=== PATIENT | male | born 1940 | race Caucasian/White ===

== ENCOUNTER → 2023-08-09 13:04 | Outpatient (REF) | payer MEDICARE, OTHER, SELFPAY | LOC: HWRAD 13:04 | PROVIDERS: ATTENDING PHYSICIAN Family Medicine | DX: I65.23 Occlusion and stenosis of bilateral carotid arteries (principal) | CPT/HCPCS: 93880 ==

== ENCOUNTER → 2023-10-20 11:10 | Outpatient (REF) | payer MEDICARE, OTHER, SELFPAY | LOC: RCS 11:10 | PROVIDERS: ATTENDING PHYSICIAN Internal Medicine Cardiovascular Disease; FAMILY PHYSICIAN Family Medicine | DX: I25.10 Atherosclerotic heart disease of native coronary artery without angina pectoris (principal); R55 Syncope and collapse | CPT/HCPCS: 93225; 93226 ==

== ENCOUNTER → 2023-10-27 08:26 | Outpatient (REF) | payer MEDICARE, OTHER, SELFPAY | LOC: DHCBC/DCA 08:26 | PROVIDERS: ATTENDING PHYSICIAN Internal Medicine Cardiovascular Disease; FAMILY PHYSICIAN Family Medicine | DX: I25.10 Atherosclerotic heart disease of native coronary artery without angina pectoris (principal) | CPT/HCPCS: 78452; 93017; A9500; J2785 ==

== ENCOUNTER 2023-11-03 08:22 | Day surgery (SDC) | payer MEDICARE, OTHER, SELFPAY ==
[2023-11-03] VITALS (13 sets, daily range): BP systolic 107–154; BP diastolic 62–95; BMI 25.8
[2023-11-03] MEDS: LOW STRENGTH ASPIRIN 81 MG PO (09:22)
[2023-11-03] MEDS: NSS 245 ML IV (09:22)
[2023-11-03] MEDS: NSS 1000 IV (11:46)
[2023-11-03] MEDS: TOPROL XL 50 MG PO (14:26)
== END 2023-11-03 14:30 | disposition home or self-care (01) ==
LOC: CATH 08:22
PROVIDERS: ATTENDING PHYSICIAN Internal Medicine Cardiovascular Disease; FAMILY PHYSICIAN Family Medicine
DX: I25.10 Atherosclerotic heart disease of native coronary artery without angina pectoris (principal); I44.7 Left bundle-branch block, unspecified; Q24.5 Malformation of coronary vessels; Z79.82 Long term (current) use of aspirin; Z79.02 Long term (current) use of antithrombotics/antiplatelets; Z79.899 Other long term (current) drug therapy; I10 Essential (primary) hypertension; E78.5 Hyperlipidemia, unspecified; R94.39 Abnormal result of other cardiovascular function study
CPT/HCPCS: 93005; 93458; C1894; Q9967

== ENCOUNTER 2023-11-10 10:00 | Day surgery (SDC) | payer MEDICARE, OTHER, SELFPAY ==
--- NOTE | 2023-11-07 17:10 | ITS.CL.CATH ---
[facility] - Catheterization
Cardiac Catheterization
Procedure Report:
CARDIAC CATHETERIZATION REPORT
Date of Procedure: 11/03/2023
Referring: Manny Heredia MD
Indication: Known CAD with new drop in LVEF and ischemic stress test
�
HEMODYNAMIC DATA
AO: 106/70
LV: 106/18
�
LEFT VENTRICULOGRAPHY: Severe anterolateral hypokinesis with EF 39%
�
CORONARY ANGIOGRAPHY
Dominance: Right
Left Main: Short with 30-40% distal stenosis
LAD: There are two blood supplies to the typical LAD distribution. 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 There is 50% in-stent
LAD stenosis extending into the previously stented diagonal branch. 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 This vessel has 90% ostial and 70-80% proximal
stenoses. Compared with the prior study from 2017, the ostial lesion is new in the proximal lesion has progressed
Circumflex: The circumflex gives rise to a large OM1 and terminates with a large OM 2. There are patent proximal stents in OM1 and in OM 2.
RCA: The RCA is dominant and severely calcified. There is 20% proximal RCA stenosis and 50% stenosis in the mid RCA spanning the takeoff of the huge acute marginal branch which becomes the PDA. The continuation of the RCA has a patent stented
segment and supplies two large posterolateral branches. 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 This was described above.
�
Closure Device: None-the procedure was performed via the right radial artery. The Carlos Enrique's test was normal prior to the procedure.
�
Radiation (mGy): 573
DAP (cm2.Gy): 50.2
Fluoroscopy time: 3.7 minutes
�
CONCLUSIONS
1:�Severe anterolateral hypokinesis with EF 39%. Of note, the anterior wall motion and LVEF were normal on the prior study from 2017
2:�Multivessel CAD as described. 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 This vessel
originates from the proximal RCA.
3. Options including continued medical therapy, attempted high risk PCI, and CABG will be discussed with the patient and family in detail
�
�
Copy to: Manny Heredia MD, Manny Man DO
�
Manny Heredia MD, FAC, [facility]
[2023-11-10] VITALS (11 sets, daily range): BP systolic 136–163; BP diastolic 64–94; BMI 26.4
[2023-11-10] MEDS: NSS 1000 IV (13:06)
--- NOTE | 2023-11-10 13:07 | ITS.CL.ANGIO ---
[facility] - Angioplasty
Angioplasty
Procedure Report:
CORONARY ANGIOPLASTY REPORT
Date of Procedure: 11/10/2023
Referring: Manny Heredia MD
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
�
PROCEDURE SUMMARY:
1. iFR assessment of distal left main coronary artery stenosis showing nonflow limiting disease (iFR 0.96)
2. 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
�
DESCRIPTION OF PROCEDURE: Following a discussion of options including medical therapy, attempted high risk PCI, and elective CABG the patient opted for PCI. We arranged formal OR backup due to the high risk nature of the procedure. I quoted a
mortality risk of 2-3%. Access was obtained via the right femoral artery with a 6 [place] sheath. A 6 [place] JL 4 guide catheter was advanced to the left coronary ostium. Heparin was used for anticoagulation. A [employer] wire was advanced into the
mid circumflex. iFR measurements were 0.96, 0.96, and 0.96. These are all consistent with nonflow-limiting disease.
We then turned our attention to the 90% ostial and 80% proximal stenoses in the anomalous LAD originating from the ostium of the RCA. 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
These vessels supply the proximal LAD distribution. The mid and distal LAD distribution are supplied by this anomalous LAD. The ACT was kept greater than 250 for the duration of the procedure. A 6 [place] LUCIE guide was advanced into the RCA.
Angiography showed the tip of the guide in the proximal RCA well distal to the takeoff of the anomalous LAD. By withdrawing the guide just out of the RCA we were able to wire the severely diseased anomalous vessel with a Hi-Torque wire. This
allowed us to get a 2.0 x 12 Euphora balloon to the proximal lesion. Multiple inflations were made to treat the proximal and ostial lesions to maximum 12 shelby. We then attempted to pass a 2.25 x 26 Brett frontier JOHN to the target location. This
was not possible. The stent was carefully removed undeployed and replaced with a 6 [place] guide liner and a 2.0 x 15 NC Euphora. The NC Euphora was inflated to 12 shelby. The guide liner was brought into the ostium of the vessel with the NC Euphora
inflated. This maneuver allowed us to get the 2.25 x 26 [place] frontier JOHN to the target location. Great care was taken to get the ostium of the vessel covered without significantly impinging on the ostium of the RCA. Once we were satisfied with
the ideal stent position the stent was deployed at 15 shelby then postdilated with a 2.25 NC Euphora to 16 shelby. The final angiographic result was outstanding. There were no procedural complications.
�
ANTI-COAGULATION THERAPY
1:�Heparin 6000 units
�
Closure Device Used: 6 [place] Angio-Seal RFA
�
Radiation (mGy): 1015
DAP (cm2.Gy): 85.9
Fluoroscopy time: 17.2 minutes
�
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 Recommend uninterrupted dual antiplatelet therapy for 12 months. Recommend
follow-up echocardiogram in 3 months to assess left ventricular function
�
Copy to: Albert Man DO, Manny Heredia MD
�
Manny Heredia MD, [facility], [facility]
�
[2023-11-10 15:12] LABS: ACT-LR - POC > 397 Seconds (116-155)
[2023-11-10 15:12] LABS: ACT-LR - POC > 397 Seconds (116-155)
--- NOTE | 2023-11-10 17:00 | W.PN.UPDATE ---
Update Note
Progress Note Update
Pt seen post LAD PCI. Right femoral site without ht/bleeding, non tender. OOB ambulating. Post EKG SR w/PVCs 80s. Pt understands importance of uninterrupted DAPT w/asa, plavix as before. Continue other meds. Cardiac rehab consulted. Followup at [facility]
as scheduled. Home today if groin site/tele remain stable.
== END 2023-11-10 18:00 | disposition home or self-care (01) ==
LOC: CATH 10:00
PROVIDERS: ATTENDING PHYSICIAN Internal Medicine Cardiovascular Disease; FAMILY PHYSICIAN Family Medicine
DX: I25.10 Atherosclerotic heart disease of native coronary artery without angina pectoris (principal); Z79.01 Long term (current) use of anticoagulants; Z95.5 Presence of coronary angioplasty implant and graft; Q24.5 Malformation of coronary vessels; Z79.82 Long term (current) use of aspirin; Z79.02 Long term (current) use of antithrombotics/antiplatelets; Z79.899 Other long term (current) drug therapy
CPT/HCPCS: 85347; 93005; 93571; C1725; C1769; C1874; C1887; C1894; C9600; Q9967

== ENCOUNTER → 2024-02-14 10:02 | Outpatient (REF) | payer MEDICARE, OTHER, SELFPAY | LOC: RCS 10:02 | PROVIDERS: ATTENDING PHYSICIAN Internal Medicine Cardiovascular Disease; FAMILY PHYSICIAN Family Medicine | DX: I42.9 Cardiomyopathy, unspecified (principal) | CPT/HCPCS: 93306 ==

== ENCOUNTER → 2024-07-12 10:56 | Outpatient (REF) | payer MEDICARE, OTHER, SELFPAY | LOC: HWRCS 10:56 | PROVIDERS: ATTENDING PHYSICIAN Student in an Organized Health Care Education/Training Program; FAMILY PHYSICIAN Family Medicine | DX: R55 Syncope and collapse (principal); I25.10 Atherosclerotic heart disease of native coronary artery without angina pectoris | CPT/HCPCS: 78452; 93017; A9500; J2785 ==